=== PATIENT | male | born 1970 | race Caucasian/White ===

== ENCOUNTER → 2024-04-11 | Outpatient (CLI) | payer OTHER ==
--- NOTE | 2024-04-11 16:40 | HMCIMG ---
ANKLE 2VWS RT REASON: ANKLE PAIN TECHNIQUE: 3 views were obtained. FINDINGS: There is no evidence of fracture or dislocation. There is no joint effusion. The soft tissues appear unremarkable. There is no evidence of a radiopaque foreign body. There is a large heel spur present. IMPRESSION: No acute findings.
--- NOTE | 2024-04-11 16:42 | HMCIMG ---
EXAM: LUMBAR SPINE 2-3VWS REASON: BACK PAIN. COMPARISON: None. TECHNIQUE: 3 views of the lumbar spine were obtained. FINDINGS: There are normal appearing vertebral bodies. Interspace heights are preserved. There are extensive degenerative changes in the facets most pronounced at L4-5 and L5-S1. There are some anterior osteophytes as well. There are no compression fractures. Soft tissues appear unremarkable. IMPRESSION: 1. Moderate to marked degenerative change, no acute finding.
== END | disposition home or self-care (01) ==
LOC: RAH 15:28
PROVIDERS: ATTEND Internal Medicine
DX: M47.817 Spondylosis without myelopathy or radiculopathy, lumbosacral region (principal); M25.571 Pain in right ankle and joints of right foot; M54.50 Low back pain, unspecified; M77.31 Calcaneal spur, right foot
CPT/HCPCS: 72100; 73600